=== PATIENT | male | born 1965 | race Caucasian/White ===

== ENCOUNTER 2021-11-14 23:51 | Observation (INO) | payer MEDICARE, SELFPAY ==
--- NOTE | 2021-11-14 23:54 | XRR_ITS ---
PROCEDURE INFORMATION: Exam: XR Chest Exam date and time: 11/15/2021 12:03 AM Age: 56 years old Clinical indication: Other: Od TECHNIQUE: Imaging protocol: Radiologic exam of the chest. Views: 1 view. COMPARISON: No relevant prior studies available. FINDINGS: Tubes, catheters and devices: Monitor leads project over the chest. Lungs: Low lung volumes with mild left basilar atelectasis versus pneumonia. Pleural spaces: Minimal left costophrenic angle blunting. No evidence of pneumothorax. Heart/Mediastinum: Heart size within normal limits given the portable AP technique. Calcified mediastinal lymph nodes. Bones/joints: Thoracic spondylosis and degenerative bony changes. XR/XR chest 1V portable [id number] IMPRESSION: 1. Low lung volumes with mild left basilar atelectasis versus pneumonia. 2. Possible small left pleural effusion.
--- NOTE | 2021-11-14 23:54 | CTR_ITS ---
PROCEDURE INFORMATION: Exam: CT Head Without Contrast Exam date and time: 11/15/2021 12:12 AM Age: 56 years old Clinical indication: Other: Od TECHNIQUE: Imaging protocol: Computed tomography of the head without contrast. Radiation optimization: All CT scans at this facility use at least one of these dose optimization techniques: automated exposure control; mA and/or kV adjustment per patient size (includes targeted exams where dose is matched to clinical indication); or iterative reconstruction. COMPARISON: No relevant prior studies available. RADIATION DOSE METRICS: Total DLP (mGy-cm): 1157.98 FINDINGS: Brain: No acute abnormality. No edema or mass effect. No hemorrhage. Cerebral ventricles: No acute abnormality. No significant ventriculomegaly. Paranasal sinuses: Mild sinus mucosal thickening without sinus fluid or air fluid level. Mastoid air cells: No acute abnormality. No significant mastoid effusion. Bones/joints: No acute osseous abnormality. No acute fracture. Soft tissues: No significant soft tissue abnormalities. CT/CT head wo con* [id number] IMPRESSION: No evidence of acute intracranial abnormality.
[2021-11-14 23:58] VITALS: BP 124/89; PULSE 80; RESP 18; O2SAT 91; BMI 27.8
[2021-11-15] VITALS (45 sets, daily range): BP systolic 112–149; BP diastolic 70–98; PULSE 55–85; RESP 8–24; TEMP 36.9; O2SAT 85–100
--- NOTE | 2021-11-15 00:05 | ECG_ITS ---
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 Measurements Intervals [place] Rate: 67 P: 45 MD: 188 QRS: 16 QRSD: 93 T: 8 QT: 423 QTc: 448 Interpretive Statements SINUS RHYTHM WITH MARKED SINUS ARRHYTHMIA SEPTAL MYOCARDIAL INFARCTION , OF INDETERMINATE AGE [40+ ms Q WAVE IN V1/V2] Compared to ECG 11/15/2021 02:13:20 Incomplete right bundle-branch block no longer present Myocardial infarct finding still present Electronically Signed On 11-15-2021 23:39:51 CDT by Abraham Singh M.D. [id number]
[2021-11-15 00:15] LABS: Basophils % 0.2 %; Eosinophils # 0.1 10^3/uL (0.0-0.8); Eosinophils % 0.8 %; Hematocrit 42.8 % (42.0-52.0); Hemoglobin 14.4 g/dL (11.7-16.6); Lymphocytes # 0.7 10^3/uL (0.8-4.8); Mean Corpuscular HGB Conc 33.6 g/dL (30.0-36.0); Mean Corpuscular Hemoglobin 28.9 pg (28.0-34.0); Mean Corpuscular Volume 85.8 fl (80-94); Mean Platelet Volume 9.7 fL (7.4-10.4); Monocytes # 0.8 10^3/uL (0.2-0.9); Monocytes % 6.2 %; Neutrophils # 11.47 10^3/uL (1.8-7.7); Neutrophils % 87.3 %; Nucleated Red Blood Cells % 0 %; Platelet Count 234 10^3/cmm (130-400); Red Blood Count 4.99 10^6/uL (4.1-5.3); Red Cell Distribution Width 12.5 % (12.1-15.1); White Blood Count 13.1 10^3/uL (4.0-10.0)
--- NOTE | 2021-11-15 00:16 | ED_ITS ---
HPI - Overdose General: Chief Complaint: Overdose Stated Complaint: OD Time Seen by Provider: 11/14/21 23:54 Source: EMS Mode of arrival: EMS Limitations: altered mental status History of Present Illness: 56-year-old male who is here with EMS for a possible drug overdose. He states were called to the residence him and his girlfriend were both unresponsive then given both Narcan at the scene the girlf eugene woke up she had admitted that they had been using drugs she states that she thinks that he snorted cocaine possibly meth and heroin. Patient did awake with Narcan but last dose was given an hour ago and he is currently quite somnolent will only wake to painful stimuli and tell me his name but then falls right back to sleep he is requiring oxygen as well. No known injuries Review of Systems General: Reports: ROS unobtainable due to mental status PFS ED PFSH: Medical History Conjunctivitis Eye infection Social History Smoking and tobacco status: former smoker Physical Exam Const: COMMON NORMALS: negative for patient oriented x3 and negative for alert OTHER: Patient is very somnolent he will wake to painful stimuli he is able to tell me his name and the date but then falls right back to sleep HENMT: COMMON NORMALS: normocephalic and atraumatic HEAD & SCALP: normocephalic and atraumatic Eye: COMMON NORMALS: Equal, round and reactive pupils present and EOMs intact bilaterally PUPIL: Yes Equal, round and reactive pupils present Neck/C-Spine: COMMON NORMALS: full ROM and supple Chest: COMMONS NORMALS: normal inspection of the chest and normal palpation of entire chest wall Resp: COMMON NORMALS: normal respiratory effort, No retractions, No use of accessory muscles and clear to auscultation bilaterally AUSCULTATION: clear to auscultation bilaterally Cardio: COMMON NORMALS: regular rate, regular rhythm and No murmurs present (Cardio) RATE: regular rate RHYTHM: regular rhythm GI: COMMON NORMALS: Normal to inspection, nondistended, normoactive bowel sounds present, Soft to palpation, non-tender and no masses PALPATION: Yes Soft to palpation Extremity: COMMON NORMALS: normal to inspection and full ROM Neuro: COMMON NORMALS: moves all extremities and no focal motor deficits; negative for patient oriented x3 SENSORIUM/ORIENTATION: No alert and Yes somnolent Psych: COMMON NORMALS: cooperative; negative for mental status grossly normal and negative for Normal thought process present THOUGHT PROCESS: abnormal Skin: COMMON NORMALS: no rashes or lesions noted and no wounds GENERAL SKIN EXAM: no rashes or lesions noted Course Vital Signs: Vital signs: Vital Signs Pulse Rate 71 11/15/21 03:01 Respiratory Rate 16 11/15/21 03:01 Blood Pressure 128/94 11/15/21 03:01 Pulse Oximetry 97 11/15/21 03:01 MDM - Overdose Medical Decision Making Patient presents here with a drug overdose she does have a pneumonia possibly from aspiration patient is more alert and awake now but is currently requiring [address] chest here showed pneumonia no signs of pulm embolism we will treat with antibiotics spoke to hospitalist will admit at this time. Lab Data : 11/15/21 00:05 11/15/21 00:05 Radiology Impressions Chest X-Ray 11/14/21 23:54 IMPRESSION: 1. Low lung volumes with mild left basilar atelectasis versus pneumonia. 2. Possible small left pleural effusion. Head CT 11/14/21 23:54 IMPRESSION: No evidence of acute intracranial abnormality. Chest CTA 11/15/21 02:47 IMPRESSION: 1. No evidence of pulmonary embolism. 2. Posterior bilateral lower lobe atelectasis versus pneumonia or aspiration with bibasilar consolidation and volume loss. 3. Small hiatal hernia with gastroesophageal reflux to the level of the thoracic inlet. Laboratory Results WBC 13.1 10^3/uL (4.0-10.0) H 11/15/21 00:05 RBC 4.99 10^6/uL (4.1-5.3) 11/15/21 00:05 Hgb 14.4 g/dL (11.7-16.6) 11/15/21 00:05 Hct 42.8 % (42.0-52.0) 11/15/21 00:05 MCV 85.8 fl (80-94) 11/15/21 00:05 MCH 28.9 pg (28.0-34.0) 11/15/21 00:05 MCHC 33.6 g/dL (30.0-36.0) 11/15/21 00:05 RDW 12.5 % (12.1-15.1) 11/15/21 00:05 Plt Count 234 10^3/cmm (130-400) 11/15/21 00:05 MPV 9.7 fL (7.4-10.4) 11/15/21 00:05 Neut % (Auto) 87.3 % 11/15/21 00:05 Lymph % (Auto) 5.0 % 11/15/21 00:05 [place] % (Auto) 6.2 % 11/15/21 00:05 Eos % (Auto) 0.8 % 11/15/21 00:05 Baso % (Auto) 0.2 % 11/15/21 00:05 Neut # (Auto) 11.47 10^3/uL (1.8-7.7) H 11/15/21 00:05 Lymph # (Auto) 0.7 10^3/uL (0.8-4.8) L 11/15/21 00:05 [place] # (Auto) 0.8 10^3/uL (0.2-0.9) 11/15/21 00:05 Eos # (Auto) 0.1 10^3/uL (0.0-0.8) 11/15/21 00:05 Baso # (Auto) 0.0 10^3/uL (0.0-0.1) 11/15/21 00:05 Nucleated RBC % (auto) 0 % 11/15/21 00:05 Nucleated RBCs # 0.0 /100WBC 11/15/21 00:05 Specimen Type Arterial 11/14/21 00:17 Sample Site Radial, left 11/14/21 00:17 ABG pH 7.30 (7.35-7.45) L 11/14/21 00:17 ABG pCO2 54.1 mmHg (35-45) H 11/14/21 00:17 ABG pO2 103.0 mmHg (80.0-100.0) H 11/14/21 00:17 ABG HCO3 26.7 mmol/L (22-26) H 11/14/21 00:17 ABG Base Excess -0.8 mmol/L (-2.0-2.0) 11/14/21 00:17 Ezra Test Pos 11/14/21 00:17 Hematocrit 46.8 % (42-52) 11/14/21 00:17 O2 Delivery Device Nc 11/14/21 00:17 O2 Liters/Min 3.0 % 11/14/21 00:17 Supervisor [employer] ID [place] 11/14/21 00:17 Sodium 140 mmol/L (136-145) 11/15/21 00:05 Potassium 4.5 mmol/L (3.5-5.1) 11/15/21 00:05 Chloride 106 mmol/L (98-107) 11/15/21 00:05 Carbon Dioxide 26 mmol/L (22-29) 11/15/21 00:05 Anion Gap 12.5 (5-19) 11/15/21 00:05 BUN 18 mg/dL (6-20) 11/15/21 00:05 Creatinine 1.2 mg/dL (0.7-1.2) 11/15/21 00:05 GFR Calculation 62.9 mL/min (90-130) L 11/15/21 00:05 Glucose 142 mg/dL (65-115) H 11/15/21 00:05 Calculated Osmolality 294 mOsm/kg (285-295) 11/15/21 00:05 Calcium 8.6 mg/dL (8.5-10.5) 11/15/21 00:05 Total Bilirubin 0.3 mg/dL (0.15-1.2) 11/15/21 00:05 AST 19 U/L (0-40) 11/15/21 00:05 ALT 19 U/L (0-41) 11/15/21 00:05 Alkaline Phosphatase 81 IU/L (40-130) 11/15/21 00:05 Troponin T Baseline 39 ng/L (0-15) H 11/15/21 00:05 Troponin T 120 Minute 61.88 ng/L (0-15) H 11/15/21 02:08 Delta Troponin T 22.88 ABS# (0-10) H* 11/15/21 02:08 Total Protein 7.0 g/dL (6.6-8.7) 11/15/21 00:05 Albumin 4.4 g/dL (3.5-5.2) 11/15/21 00:05 Globulin 2.6 g/dL (1.3-4.6) 11/15/21 00:05 Salicylates < 0.3 mg/dL (3-10) L 11/15/21 00:05 Urine Opiates Screen Negative ng/mL (Negative) 11/15/21 00:35 Acetaminophen < 5.0 ug/mL (10-30) L 11/15/21 00:05 Ur Barbiturates Screen Negative ng/mL (Negative) 11/15/21 00:35 Ur Phencyclidine Scrn Negative ng/mL (Negative) 11/15/21 00:35 Ur Amphetamines Screen Positive ng/mL (Negative) H 11/15/21 00:35 U Benzodiazepines Scrn Negative ng/mL (Negative) 11/15/21 00:35 Urine Cocaine Screen Positive ng/mL (Negative) H 11/15/21 00:35 U Marijuana (THC) Screen Negative ng/mL (Negative) 11/15/21 00:35 Ethyl Alcohol < 10 mg/dL (0-10) 11/15/21 00:05 EKG Data EKG 1: I personally reviewed and interpreted this EKG as follows: EKG interpretation date: 11/15/21 EKG interpretation time: 00:01 Interpretation: nsr hr [address] or t wave abnormalities qrs 98 qtc 443 EKG 2: I personally reviewed and interpreted this EKG as follows: EKG interpretation date: 11/15/21 EKG interpretation time: 02:13 Interpretation: nsr hr [address] or t wave abnormalities qrs 94 qtc 438 Critical Care Time Critical Care Time: Critical Care Time: Yes Total Critical Care Time: 40 Attestation: The high probability of a clinically significant, sudden or life threatening deterioration of the patient's resp system(s) required my full and direct attention, intervention and personal management. The critical care time is as shown. This time is in addition to time spent performing any reported procedures but includes the following: [x] Data and vital sign review and interpretation [x] Patient assessment, examination and intervention [x] Documentation [x] Medication orders and management Discharge Plan Discharge Patient Disposition: Admitted As Inpatient Admit Provider: Love Hood Clinical Impression: Drug overdose, Pneumonia, Altered mental status Condition: Stable Coding Level of Care Code ED Quality Eng for Chg Fwd Exam Comprehensive
[2021-11-15 00:29] LABS: ABG PCO2 54.1 mmHg (35-45); Arterial Blood Gas Hematocrit 46.8 % (42-52); Base Excess ABG -0.8 mmol/L (-2.0-2.0); Blood Gas Allen Test Pos; Blood Gas Operator Identificat WALCI; Blood Gas Sample Site Radial, left; Blood Gas Sample Type Arterial; HCO3 ABG 26.7 mmol/L (22-26); Oxygen Device NC
[2021-11-15 00:33] LABS: Troponin(5th) Baseline 39 ng/L (0-15)
[2021-11-15 00:34] LABS: Alanine Aminotransferase 19 U/L (0-41); Albumin Level 4.4 g/dL (3.5-5.2); Alkaline Phosphatase 81 IU/L (40-130); Anion Gap 12.5 (5-19); Aspartate Amino Transferase 19 U/L (0-40); Blood Urea Nitrogen 18 mg/dL (6-20); Calcium 8.6 mg/dL (8.5-10.5); Carbon Dioxide 26 mmol/L (22-29); Chloride 106 mmol/L (98-107); Globulin 2.6 g/dL (1.3-4.6); Glomerular Filtration Rate 62.9 mL/min (90-130); Glucose 142 mg/dL (65-115); Osmolality Calculated 294 mOsm/kg (285-295); Potassium 4.5 mmol/L (3.5-5.1); Sodium 140 mmol/L (136-145); Total Bilirubin 0.3 mg/dL (0.15-1.2)
[2021-11-15 00:35] LABS: Acetaminophen < 5.0 ug/mL (10-30); Alcohol Level < 10 mg/dL (0-10); Salicylate < 0.3 mg/dL (3-10)
[2021-11-15] MEDS: sodium chloride 0.9% 1,000 ML 999 ML IV (00:40)
[2021-11-15 01:13] LABS: Amphetamines Screen Urine Positive (Negative); Barbiturates Screen Urine Negative (Negative); Benzodiazepines Screen Urine Negative (Negative); Cocaine Screen Urine Positive (Negative); Opiate Screen Urine Negative (Negative); PCP Screen Urine Negative (Negative); THC Screen Urine Negative (Negative)
--- NOTE | 2021-11-15 02:05 | ECG_ITS ---
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 Measurements Intervals [place] Rate: 65 P: 37 ND: 207 QRS: 7 QRSD: 94 T: 15 QT: 426 QTc: 445 Interpretive Statements SINUS RHYTHM WITH MARKED SINUS ARRHYTHMIA POSSIBLE LEFT ATRIAL ENLARGEMENT [-0.1mV P-WAVE IN V1/V2] INCOMPLETE RIGHT BUNDLE BRANCH BLOCK [90+ ms QRS DURATION, TERMINAL R IN V1/V2, 40+ ms S IN I/aVL/V4/V5/V6] POSSIBLE LEFT VENTRICULAR HYPERTROPHY [VOLTAGE CRITERIA PLUS LAE OR QRS WIDENING] POSSIBLE ANTEROSEPTAL MYOCARDIAL INFARCTION , OF INDETERMINATE AGE [30 ms Q WAVE IN V1-V4] Compared to ECG 11/15/2021 00:01:46 No significant changes Electronically Signed On 11-15-2021 23:46:00 CDT by Abraham Singh M.D. [id number]
--- NOTE | 2021-11-15 02:19 | PC.NURSE ---
EKG done at 0210 and shown to ER doctor
[2021-11-15 02:41] LABS: Troponin 5 2HR 61.88 ng/L (0-15)
[2021-11-15 02:44] LABS: Troponin 5 2HR Delta 22.88 ABS# (0-10)
--- NOTE | 2021-11-15 02:47 | CTR_ITS ---
PROCEDURE INFORMATION: Exam: CTA Chest With Contrast Exam date and time: 11/15/2021 3:12 AM Age: 56 years old Clinical indication: Shortness of breath and other: Od; Additional info: SOB TECHNIQUE: Imaging protocol: Computed tomographic angiography of the chest with contrast. 3D rendering (Not supervised by radiologist): MIP and/or 3D reconstructed images were created by the technologist. Radiation optimization: All CT scans at this facility use at least one of these dose optimization techniques: automated exposure control; mA and/or kV adjustment per patient size (includes targeted exams where dose is matched to clinical indication); or iterative reconstruction. Contrast material: OMNI 350; Contrast volume: 68 ml; Contrast route: INTRAVENOUS (IV); COMPARISON: CR (CHEST, ) 11/15/2021 12:03 AM RADIATION DOSE METRICS: Total DLP (mGy-cm): 516.38 FINDINGS: Pulmonary arteries: No vascular intraluminal filling defects to suggest pulmonary embolism. Aorta: Mild atherosclerotic tortuosity of the thoracic aorta. No aortic aneurysm or dissection. Lungs: Posterior bilateral lower lobe atelectasis versus pneumonia or aspiration with bibasilar consolidation and volume loss. Minimal posterior bilateral upper lobe dependent changes. Small bilateral calcified granulomas. Pleural spaces: Unremarkable. No pneumothorax. No pleural effusion. Heart: Heart size upper limits of normal. Mediastinal space: Small hiatal hernia. Fluid within the esophagus to the level of the thoracic inlet suggesting gastroesophageal reflux. Lymph nodes: Calcified mediastinal and hilar lymph nodes. Spleen: Punctate splenic calcified granulomas. Bones/joints: Mild thoracic kyphosis, spondylosis and degenerative bony changes. Soft tissues: No significant soft tissue abnormalities. CT/CT angio chest PE protcl [id number] IMPRESSION: 1. No evidence of pulmonary embolism. 2. Posterior bilateral lower lobe atelectasis versus pneumonia or aspiration with bibasilar consolidation and volume loss. 3. Small hiatal hernia with gastroesophageal reflux to the level of the thoracic inlet.
[2021-11-15] MEDS: iohexol 350 mg/mL 100 mL Btl IV (03:21)
[2021-11-15] MEDS: cefTRIAXone 1,000 MG in sodium chloride 0.9% (plus) 50 ML 100 MG IV (03:39)
[2021-11-15] MEDS: azithromycin 500 MG in sodium chloride 0.9% 250 ML 250 MG IV (04:05)
[2021-11-15] MEDS: enoxaparin 100 mg/mL Syringe 90 MG SUBCUT ×2 (04:19→16:42)
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
--- NOTE | 2021-11-15 06:02 | USCV_ITS ---
Yanick Bhatti Age: 56 Gender: M : 1965 Exam Date: 11/15/2021 08:17 Ordering Phys: Love Hood MD Technologist: [place] [facility] [place]: chest pain BP: 141 / 103 HR: 59 Rhythm: Sinus Technical Quality: Adequate MEASUREMENTS (Male / Female) Normal Values 2D ECHO LV Diastolic Diameter PLAX 4.0 cm 4.2 - 5.9 / 3.9 - 5.3 cm LV Systolic Diameter PLAX 2.1 cm IVS Diastolic Thickness 1.0 cm 0.6 - 1.0 / 0.6 - 0.9 cm IVS Systolic Thickness 1.6 cm LVPW Diastolic Thickness 1.3 cm 0.6 - 1.0 / 0.6 - 0.9 cm LVPW Systolic Thickness 1.4 cm LVOT Diameter 2.0 cm LV Ejection Fraction 2D Teich 77.6 % LV Ejection Fraction MOD 2C 43.4 % LV Ejection Fraction 2C AL 41.9 % LA Diameter 4.7 cm M-MODE Aortic Annulus Diameter 2.5 cm LA Ao Ratio MM 1.9 MV E Point Septal Separation 0.6 cm DOPPLER AV Peak Velocity 129.0 cm/s LVOT Peak Velocity 104.0 cm/s AV Area Cont Eq vti 3.1 cm squared AV Area Cont Eq pk 2.6 cm squared MV Area PHT 5.0 cm squared Mitral E to A Ratio 1.0 MV E' Velocity 47.0 cm/s Mitral E to MV E' Ratio 12.9 Mitral E to LV E' Lateral Ratio 13.0 Mitral E to LV E' Septal Ratio 12.7 TR Peak Velocity 165.5 cm/s TR Peak Gradient 11.0 mmHg TV Peak E Velocity 69.0 cm/s Right Atrial Pressure 3.0 mmHg Pulmonary Artery Systolic Pressu 14.0 mmHg PV Peak Velocity 89.0 cm/s FINDINGS Left Ventricle Normal left ventricular size and systolic function, EF 55 %. Mild left ventricular hypertrophy. No regional wall motion abnormalities. Right Ventricle The right ventricle is normal in size and function. Right Atrium The right atrium is normal in size. Left Atrium The left atrium is normal in size. Mitral Valve No gross abnormalities noted Aortic Valve No gross abnormalities noted Tricuspid Valve Trace tricuspid valve regurgitation. Pulmonic Valve No gross abnormalities noted Pericardium Normal pericardium without effusion. Aorta Normal ascending aorta dimension. IVC The inferior vena cava pulmonary and hepatic veins appear normal. CONCLUSIONS Normal left ventricular size and systolic function, EF 55 %. Mild left ventricular hypertrophy. No regional wall motion abnormalities. Trace tricuspid valve regurgitation. Estimated pulmonary artery peak systolic pressure 14 mmHg. There is no pericardial effusion. There are no intracardiac masses. No previous study is available for comparison. Dr Abraham Singh MD FACC (Electronically Signed) Final Date: 15 November 2021 22:57 S
--- NOTE | 2021-11-15 06:05 | ECG_ITS ---
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 Measurements Intervals [place] Rate: 71 P: 45 AL: 193 QRS: 11 QRSD: 98 T: 17 QT: 421 QTc: 457 Interpretive Statements SINUS RHYTHM WITH SINUS ARRHYTHMIA POSSIBLE LEFT ATRIAL ENLARGEMENT [-0.1mV P-WAVE IN V1/V2] INCOMPLETE RIGHT BUNDLE BRANCH BLOCK [90+ ms QRS DURATION, TERMINAL R IN V1/V2, 40+ ms S IN I/aVL/V4/V5/V6] POSSIBLE LEFT VENTRICULAR HYPERTROPHY [VOLTAGE CRITERIA PLUS LAE OR QRS WIDENING] POSSIBLE ANTEROSEPTAL MYOCARDIAL INFARCTION , OF INDETERMINATE AGE [30 ms Q WAVE IN V1-V4] No previous ECG available for comparison Electronically Signed On 11-15-2021 23:44:17 CDT by Abraham Singh M.D. [id number]
--- NOTE | 2021-11-15 06:05 | P.HP_ITS ---
Providers/Chief Complaint Admitting Physician: Love Hood MD Chief Complaint: OD History of Present Illness Yanick Bhatti is a 56 year old male without known significant PMH who is brought to the ER today with AMS. No clear history available at this time for patient due to AMS and lethargy. Per ER and EMS report, patient was found unresponsive in his home today with h/o having taking multiple illicit substances including heroin, cocaine and meth. He received Narcan after which his mentation improved, however he remains katia rgic. Also noted to have been hypoxic, needing supplemental 02 at 2lpm. Review of Systems General: Reports: ROS unobtainable due to medical condition and ROS unobtainable due to mental status Medications/Allergies Home Medications Medication Instructions Recorded Confirmed Last Taken Type qwojkwgz-vrdwyuhph-cbqstoox 3.5 2 drp OPHTHALMIC (EYE) Q6H #5 ml 08/02/21 08/02/21 Unknown Rx mg/mL-10,000 unit/mL-0.1% eye drops Allergies Allergy/AdvReac Type Severity Reaction Status Date / Time No Known Allergies Allergy Unverified 08/02/21 13:19 PFSH Acute PFSH: Medical History Conjunctivitis Eye infection Social History Smoking and tobacco status: former smoker Vitals/I&O/Wt Last Vital Signs Pulse 64 11/15/21 05:55 Resp 9 L 11/15/21 05:55 BP 118/80 11/15/21 05:55 Pulse Ox 100 11/15/21 05:55 11/14/21 11/14/21 11/15/21 14:59 22:59 06:59 Intake Total 1300 / 1300 Balance 1300 / 1300 Weight last 48 hrs Weight 90.718 kg Physical Exam Narrative: GEN: Lethargic, drowsy, wakes up to calling name and nods yes or no but does not follow directed commands CVS: S1S2 N RS: CTA B/L anteriorly Abd: Soft, nt/nd , bs+ 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 Low lung volumes with mild left basilar atelectasis versus pneumonia. 2. Possible small left pleural effusion. Head CT 11/14/21 23:54 IMPRESSION: No evidence of acute intracranial abnormality. Chest CTA 11/15/21 02:47 IMPRESSION: 1. No evidence of pulmonary embolism. 2. Posterior bilateral lower lobe atelectasis versus pneumonia or aspiration with bibasilar consolidation and volume loss. 3. Small hiatal hernia with gastroesophageal reflux to the level of the thoracic inlet. Laboratory Results WBC 13.1 10^3/uL (4.0-10.0) H 11/15/21 00:05 RBC 4.99 10^6/uL (4.1-5.3) 11/15/21 00:05 Hgb 14.4 g/dL (11.7-16.6) 11/15/21 00:05 Hct 42.8 % (42.0-52.0) 11/15/21 00:05 MCV 85.8 fl (80-94) 11/15/21 00:05 MCH 28.9 pg (28.0-34.0) 11/15/21 00:05 MCHC 33.6 g/dL (30.0-36.0) 11/15/21 00:05 RDW 12.5 % (12.1-15.1) 11/15/21 00:05 Plt Count 234 10^3/cmm (130-400) 11/15/21 00:05 MPV 9.7 fL (7.4-10.4) 11/15/21 00:05 Neut % (Auto) 87.3 % 11/15/21 00:05 Lymph % (Auto) 5.0 % 11/15/21 00:05 Randolph % (Auto) 6.2 % 11/15/21 00:05 Eos % (Auto) 0.8 % 11/15/21 00:05 Baso % (Auto) 0.2 % 11/15/21 00:05 Neut # (Auto) 11.47 10^3/uL (1.8-7.7) H 11/15/21 00:05 Lymph # (Auto) 0.7 10^3/uL (0.8-4.8) L 11/15/21 00:05 Randolph # (Auto) 0.8 10^3/uL (0.2-0.9) 11/15/21 00:05 Eos # (Auto) 0.1 10^3/uL (0.0-0.8) 11/15/21 00:05 Baso # (Auto) 0.0 10^3/uL (0.0-0.1) 11/15/21 00:05 Nucleated RBC % (auto) 0 % 11/15/21 00:05 Nucleated RBCs # 0.0 /100WBC 11/15/21 00:05 Specimen Type Arterial 11/14/21 00:17 Sample Site Radial, left 11/14/21 00:17 ABG pH 7.30 (7.35-7.45) L 11/14/21 00:17 ABG pCO2 54.1 mmHg (35-45) H 11/14/21 00:17 ABG pO2 103.0 mmHg (80.0-100.0) H 11/14/21 00:17 ABG HCO3 26.7 mmol/L (22-26) H 11/14/21 00:17 ABG Base Excess -0.8 mmol/L (-2.0-2.0) 11/14/21 00:17 Ezra Test Pos 11/14/21 00:17 Hematocrit 46.8 % (42-52) 11/14/21 00:17 O2 Delivery Device Nc 11/14/21 00:17 O2 Liters/Min 3.0 % 11/14/21 00:17 Electronic Technician ID Walci 11/14/21 00:17 Sodium 140 mmol/L (136-145) 11/15/21 00:05 Potassium 4.5 mmol/L (3.5-5.1) 11/15/21 00:05 Chloride 106 mmol/L (98-107) 11/15/21 00:05 Carbon Dioxide 26 mmol/L (22-29) 11/15/21 00:05 Anion Gap 12.5 (5-19) 11/15/21 00:05 BUN 18 mg/dL (6-20) 11/15/21 00:05 Creatinine 1.2 mg/dL (0.7-1.2) 11/15/21 00:05 GFR Calculation 62.9 mL/min (90-130) L 11/15/21 00:05 Glucose 142 mg/dL (65-115) H 11/15/21 00:05 Calculated Osmolality 294 mOsm/kg (285-295) 11/15/21 00:05 Calcium 8.6 mg/dL (8.5-10.5) 11/15/21 00:05 Total Bilirubin 0.3 mg/dL (0.15-1.2) 11/15/21 00:05 AST 19 U/L (0-40) 11/15/21 00:05 ALT 19 U/L (0-41) 11/15/21 00:05 Alkaline Phosphatase 81 IU/L (40-130) 11/15/21 00:05 Troponin T Baseline 39 ng/L (0-15) H 11/15/21 00:05 Troponin T 120 Minute 61.88 ng/L (0-15) H 11/15/21 02:08 Delta Troponin T 22.88 ABS# (0-10) H* 11/15/21 02:08 Total Protein 7.0 g/dL (6.6-8.7) 11/15/21 00:05 Albumin 4.4 g/dL (3.5-5.2) 11/15/21 00:05 Globulin 2.6 g/dL (1.3-4.6) 11/15/21 00:05 Salicylates < 0.3 mg/dL (3-10) L 11/15/21 00:05 Urine Opiates Screen Negative ng/mL (Negative) 11/15/21 00:35 Acetaminophen < 5.0 ug/mL (10-30) L 11/15/21 00:05 Ur Barbiturates Screen Negative ng/mL (Negative) 11/15/21 00:35 Ur Phencyclidine Scrn Negative ng/mL (Negative) 11/15/21 00:35 Ur Amphetamines Screen Positive ng/mL (Negative) H 11/15/21 00:35 U Benzodiazepines Scrn Negative ng/mL (Negative) 11/15/21 00:35 Urine Cocaine Screen Positive ng/mL (Negative) H 11/15/21 00:35 U Marijuana (THC) Screen Negative ng/mL (Negative) 11/15/21 00:35 Ethyl Alcohol < 10 mg/dL (0-10) 11/15/21 00:05 A&P Assessment and plan (1) Drug overdose: Status: Acute (2) Pneumonia: Status: Acute (3) Altered mental status: Status: Acute (4) NSTEMI (non-ST elevated myocardial infarction): Status: Acute Plan 56M presenting today with AMS likely as a result of polysubstance abuse and acute intoxication . # AMS CT head without acute intracranial events AMS likely reated to polysubstance abuse Per EMS report patient had improved mentation after being narcan, however remains lethargic at this time Admitted to ICU for close observation monitor for seizures NPO until fully awake and alert # acute intoxication Supportive management with iv hydration prn benzodiazepenes with 02 sat permitting Cardiac monitoring # aspiration pneumonia : On empric piperacillin/tazobactam # Hypoxia: likely a combination of aspiration and poor inspiratory effort from AMS supplemental 02 to keep sat >92% ABG noted #NSTEMI: elevated baseline troponin with delta >10 at 2 hrs Likely related to vasospasm from cocaine vs ischemia EKG with sinus arrhythmia, no acute ST-T wave changes on EKG Lovenox 1mg/kg q12h prn nitrates for chest pain avoid b blockers check echocardiogram Attestations Medical Necessity Statement*: >2 midnight admission anticipated for above care Coding Level of Care Code Acute Staffing Administrator for [facility] Fwd Diagnoses Drug overdose T50.901A Pneumonia J18.9 Altered mental status R41.82 NSTEMI (non-ST elevated myocardial infarction) I21.4
[2021-11-15] MEDS: famotidine 20 mg/2 mL INJ IVP ×2 (06:40→19:01)
[2021-11-15] MEDS: sodium chloride 0.9% 1,000 ML 75 ML IV ×2 (06:40→19:03)
--- NOTE | 2021-11-15 06:53 | PC.NURSE ---
Shift Summary Patient had an uneventful shift he remains on 2LNC. No complaints of pain overnight. IVF infusing per protocol.
[2021-11-15 07:22] LABS: Lactic Sepsis W/Reflex 0.7 mmol/L (0.5-2.2)
[2021-11-15 07:37] LABS: Troponin 5 6HR 40.58 ng/L (0-15)
[2021-11-15 07:40] LABS: Troponin 5 6HR Delta 1.58 ng/L (0-12)
[2021-11-15] MEDS: aspirin 81 mg EC Tablet PO (08:42)
[2021-11-15] MEDS: atorvastatin 40 mg Tablet PO (21:38)
--- NOTE | 2021-11-15 22:03 | P.PN_ITS ---
Subjective Subjective: Awake this evening. Not much recollection of events. Not able to recall what he might have taken. Still on oxygen at 2 L. Not normally on oxygen. Cough. Denies history of CAD. No clear family history of CAD. Says has been told that he had an abnormal heart rhythm in the past. No medications for this. Vitals/I&O/Wt Last Vital Signs Temp 98.4 F 11/15/21 20:00 Pulse 60 11/15/21 19:36 Resp 12 11/15/21 19:00 BP 134/88 11/15/21 19:00 Pulse Ox 98 11/15/21 19:36 11/15/21 11/15/21 11/15/21 06:59 14:59 22:59 Intake Total 1300 / 1300 1668.75 / 1668.75 Output Total 200 / 200 Balance 1300 / 1300 1468.75 / 1468.75 Weight last 48 hrs Weight 90.718 kg Physical Exam Narrative: Constitutional: Awake, cooperative HEENT: Injected conjuctiva and sclera, dry lips Respiratory: Scattered crackles, occassional wheeze resolves with cough/throat clearing, no accessory muscle use Cardiovascular: Regular rhythm, 2 plus pulses Abdomen: Soft, nontender Extremities: No edema Neuro: Speech clear but not able to answer some questions, slightly restless in bed at present, not tremulous, follows converstaion and basic instructions Skin: Red in sun exposed areas, tattoos, hand dirty Data : 11/15/21 00:05 11/15/21 00:05 Micro: Microbiology 11/15/21 06:17 Blood Culture - Preliminary Blood SPECIMEN COLLECTED 11/15/21 03:59 Blood Culture - Preliminary Blood SPECIMEN COLLECTED Other data: Echo pending read A&P Assessment and plan (1) Drug overdose: Polysubstance with amphetamines, cocaine Status: Acute Qualifiers: Encounter type: initial encounter Injury intent: accidental or unintentional Qualified Code(s): T50.901A - Poisoning by unspecified drugs, medicaments and biological substances, accidental (unintentional), initial encounter (2) NSTEMI (non-ST elevated myocardial infarction): + delta troponin at 2 hours with ekg changes, no current chest pain Status: Acute (3) Pneumonia: Requiring oxygen Status: Acute Qualifiers: Pneumonia type: aspiration pneumonia Aspiration pneumonia type: due to gastric secretions Laterality: bilateral Lung location: lower lobe of lung Qualified Code(s): J69.0 - Pneumonitis due to inhalation of food and vomit Plan Transfer to floor Follow up echo report Continue aspirin, statin and treatment dose lovenox Continue Zosyn, s/p rocephin and azithromycin Cultures pending Wean oxygen as able Add diet and decrease IVFs Recheck blood sugar in am Check CK Attestations Medical Necessity Statement*: See H&P same date Coding Level of Care Code Acute Assurance Sourcing Manager for g Fwd Diagnoses Drug overdose T50.706X Encounter type: initial encounter Injury intent: accidental or unintentional NSTEMI (non-ST elevated myocardial infarction) I21.4 Pneumonia J69.0 Pneumonia type: aspiration pneumonia Aspiration pneumonia type: due to gastric secretions Laterality: bilateral Lung location: lower lobe of lung
[2021-11-15] MEDS: piperacillin-tazobactam 3.375 GM in sodium chloride 0.9% (plus) 50 ML IV (22:05)
[2021-11-16] VITALS (12 sets, daily range): BP systolic 134–147; BP diastolic 77–94; PULSE 58–71; RESP 10–18; TEMP 36.2–36.8; O2SAT 91–100
[2021-11-16] MEDS: enoxaparin 100 mg/mL Syringe 90 MG SUBCUT (05:22)
[2021-11-16] MEDS: famotidine 20 mg/2 mL INJ IVP (05:22)
[2021-11-16] MEDS: piperacillin-tazobactam 3.375 GM in sodium chloride 0.9% (plus) 50 ML IV (05:23)
[2021-11-16 06:20] LABS: Basophils % 0.4 %; Eosinophils # 0.5 10^3/uL (0.0-0.8); Eosinophils % 6.2 %; Hematocrit 40.6 % (42.0-52.0); Hemoglobin 13.2 g/dL (11.7-16.6); Lymphocytes # 1.8 10^3/uL (0.8-4.8); Mean Corpuscular HGB Conc 32.5 g/dL (30.0-36.0); Mean Corpuscular Volume 89.2 fl (80-94); Mean Platelet Volume 10.3 fL (7.4-10.4); Monocytes # 0.7 10^3/uL (0.2-0.9); Monocytes % 8.6 %; Neutrophils # 4.67 10^3/uL (1.8-7.7); Neutrophils % 61.4 %; Nucleated Red Blood Cells % 0 %; Platelet Count 231 10^3/cmm (130-400); Red Blood Count 4.55 10^6/uL (4.1-5.3); Red Cell Distribution Width 12.8 % (12.1-15.1); White Blood Count 7.6 10^3/uL (4.0-10.0)
[2021-11-16 06:49] LABS: Alanine Aminotransferase 14 U/L (0-41); Albumin Level 3.5 g/dL (3.5-5.2); Alkaline Phosphatase 73 IU/L (40-130); Aspartate Amino Transferase 18 U/L (0-40); Blood Urea Nitrogen 19 mg/dL (6-20); Calcium 8.5 mg/dL (8.5-10.5); Carbon Dioxide 27 mmol/L (22-29); Chloride 103 mmol/L (98-107); Creatine Phosphokinase 226 U/L (39-308); Globulin 2.5 g/dL (1.3-4.6); Glomerular Filtration Rate 62.9 mL/min (90-130); Glucose 80 mg/dL (65-115); Osmolality Calculated 285 mOsm/kg (285-295); Sodium 137 mmol/L (136-145); Total Bilirubin 0.3 mg/dL (0.15-1.2)
--- NOTE | 2021-11-16 06:55 | PC.NURSE ---
Bedside report completed with BENY Hua.
--- NOTE | 2021-11-16 08:20 | PC.NURSE ---
Report given to BENY Moon. Unable to complete bedside report due to this nurse required to be near other patient, as sitter. . Care transferred.
[2021-11-16] MEDS: aspirin 81 mg EC Tablet PO (08:45)
--- NOTE | 2021-11-16 09:33 | PM.DCS ---
Discharge Providers Date of Admission: 11/15/21 04:10 Date of Discharge: November 16, 2021 Attending Provider at Admission: Love Hood MD Attending Provider at Discharge: Alejandra Horton MD Diagnoses at Discharge Discharge Diagnosis (1) Drug overdose: Details from hospital stay: Unintentional, drug screen with methamphetamines and cocaine Status: Acute Qualifiers: Encounter type: initial encounter Injury intent: accidental or unintentional Qualified Code(s): T50.901A - Poisoning by unspecified drugs, medicaments and biological substances, accidental (unintentional), initial encounter (2) NSTEMI (non-ST elevated myocardial infarction): Details from hospital stay: In the setting of positive cocaine screen. No known coronary artery disease nor appreciable history of coronary artery disease in the family. Denies anginal type symptoms at any point in the past in particular the last month or so. Has not had any chest pain during the hospital stay and does not recall any prior to event leading to admission. Status: Acute (3) Pneumonia: Details from hospital stay: Aspiration, no defined organism Status: Acute Qualifiers: Aspiration pneumonia type: due to gastric secretions Laterality: bilateral Lung location: lower lobe of lung Pneumonia type: aspiration pneumonia Qualified Code(s): J69.0 - Pneumonitis due to inhalation of food and vomit Reason for Visit Reason for Visit: OD Brief History: From H&P: Yanick Bhatti is a 56 year old male without known significant PMH who is brought to the ER today with AMS. No clear history available at this time for patient due to AMS and lethargy. Per ER and EMS report, patient was found unresponsive in his home today with h/o having taking multiple illicit substances including heroin, cocaine and meth. He received Narcan after which his mentation improved, however he remains lethargic. Also noted to have been hypoxic, needing supplemental 02 at 2lpm. Hospital Course Hospital Course Patient was admitted initially to the ICU secondary to persistent lethargy after overdose. For non-ST elevation OK, he was treated with aspirin, statin, treatment dose Lovenox. Also given benzodiazepines if needed. Echocardiogram showed normal ejection fraction and no wall motion abnormalities. Inpatient cardiac stress testing was offered but patient preferred outpatient follow-up. We reviewed that he could in fact have significant coronary artery disease identified by the strain from overdose. Talked about the fact that he could have another heart attack, develop heart failure or even if cardiac disease is not identified and treated. He will be discharged on aspirin, statin, as needed sublingual nitroglycerin and beta-blockade to initiate after stress testing is completed. Exercise MIBI has been ordered. Arrangements are underway to find a primary care provider who can help him follow-up the results otherwise they will be sent to me. Patient verbally expressed understanding of the potential severity and need for follow-up. Lipid panel was ordered and is pending results. Patient was hypoxic and had bilateral lower lobe opacities. Diagnosed with aspiration pneumonia. Treated initially with Rocephin and azithromycin, transition to Zosyn inpatient and will be discharged on Augmentin. He was requiring oxygen initially though at the time of discharge was maintaining room air saturations. Some congestion and cough on the day of discharge but no acute distress. We discussed importance of avoiding drugs as well as not drinking and smoking in terms of overall heart health. Encourage patient to follow regularly with a primary care provider for annual checkups and to address concerns about possible underlying heart disease. A follow-up appointment with cardiology will be arranged. Patient was awake and alert at the time of discharge. He was oriented to person place and situation. He had some scattered wheezes that improved after a cough, otherwise clear, regular rhythm, no murmurs. He expressed understanding of the conversation that we had had and given an opportunity to ask questions. Discharge plans were reviewed with him personally by me as well as with nursing staff who will review again. Discharge Data Studies Completed and Pending Completed Studies During Hospitalization Category Date Time Status CT head wo con* [id number] Urgent Cat Scan 11/14/21 23:54 Completed CTA chest [CT angio chest PE protcl 33250] Urgent Cat Scan 11/15/21 02:47 Completed XR chest 1V portable [id number] Urgent Exams 11/14/21 23:54 Completed CV. echo complete* [id number] Routine Ultrasound 11/15/21 06:02 Completed Pending at discharge Category Date Time Status Blood Culture Stat Lab 11/15/21 06:17 Results Lipid Panel Routine Lab 11/16/21 04:40 Received Radiology Impressions Chest X-Ray 11/14/21 23:54 IMPRESSION: 1. Low lung volumes with mild left basilar atelectasis versus pneumonia. 2. Possible small left pleural effusion. Head CT 11/14/21 23:54 IMPRESSION: No evidence of acute intracranial abnormality. Chest CTA 11/15/21 02:47 IMPRESSION: 1. No evidence of pulmonary embolism. 2. Posterior bilateral lower lobe atelectasis versus pneumonia or aspiration with bibasilar consolidation and volume loss. 3. Small hiatal hernia with gastroesophageal reflux to the level of the thoracic inlet. Laboratory Results WBC 7.6 10^3/uL (4.0-10.0) 11/16/21 04:40 RBC 4.55 10^6/uL (4.1-5.3) 11/16/21 04:40 Hgb 13.2 g/dL (11.7-16.6) 11/16/21 04:40 Hct 40.6 % (42.0-52.0) L 11/16/21 04:40 MCV 89.2 fl (80-94) 11/16/21 04:40 MCH 29.0 pg (28.0-34.0) 11/16/21 04:40 MCHC 32.5 g/dL (30.0-36.0) 11/16/21 04:40 RDW 12.8 % (12.1-15.1) 11/16/21 04:40 Plt Count 231 10^3/cmm (130-400) 11/16/21 04:40 MPV 10.3 fL (7.4-10.4) 11/16/21 04:40 Neut % (Auto) 61.4 % 11/16/21 04:40 Lymph % (Auto) 23.0 % 11/16/21 04:40 [place] % (Auto) 8.6 % 11/16/21 04:40 Eos % (Auto) 6.2 % 11/16/21 04:40 Baso % (Auto) 0.4 % 11/16/21 04:40 Neut # (Auto) 4.67 10^3/uL (1.8-7.7) 11/16/21 04:40 Lymph # (Auto) 1.8 10^3/uL (0.8-4.8) 11/16/21 04:40 Hamblen # (Auto) 0.7 10^3/uL (0.2-0.9) 11/16/21 04:40 Eos # (Auto) 0.5 10^3/uL (0.0-0.8) 11/16/21 04:40 Baso # (Auto) 0.0 10^3/uL (0.0-0.1) 11/16/21 04:40 Nucleated RBC % (auto) 0 % 11/16/21 04:40 Nucleated RBCs # 0.0 /100WBC 11/16/21 04:40 Specimen Type Arterial 11/14/21 00:17 Sample Site Radial, left 11/14/21 00:17 ABG pH 7.30 (7.35-7.45) L 11/14/21 00:17 ABG pCO2 54.1 mmHg (35-45) H 11/14/21 00:17 ABG pO2 103.0 mmHg (80.0-100.0) H 11/14/21 00:17 ABG HCO3 26.7 mmol/L (22-26) H 11/14/21 00:17 ABG Base Excess -0.8 mmol/L (-2.0-2.0) 11/14/21 00:17 Ezra Test Pos 11/14/21 00:17 Hematocrit 46.8 % (42-52) 11/14/21 00:17 O2 Delivery Device Nc 11/14/21 00:17 O2 Liters/Min 3.0 % 11/14/21 00:17 Instrument Specialist ID Walci 11/14/21 00:17 Sodium 137 mmol/L (136-145) 11/16/21 04:40 Potassium 4.0 mmol/L (3.5-5.1) 11/16/21 04:40 Chloride 103 mmol/L (98-107) 11/16/21 04:40 Carbon Dioxide 27 mmol/L (22-29) 11/16/21 04:40 Anion Gap 11.0 (5-19) 11/16/21 04:40 BUN 19 mg/dL (6-20) 11/16/21 04:40 Creatinine 1.2 mg/dL (0.7-1.2) 11/16/21 04:40 GFR Calculation 62.9 mL/min (90-130) L 11/16/21 04:40 Glucose 80 mg/dL (65-115) 11/16/21 04:40 Calculated Osmolality 285 mOsm/kg (285-295) 11/16/21 04:40 Lactic Acid 0.7 mmol/L (0.5-2.2) 11/15/21 06:17 Calcium 8.5 mg/dL (8.5-10.5) 11/16/21 04:40 Magnesium 2.0 mg/dL (1.7-2.3) 11/16/21 04:40 Total Bilirubin 0.3 mg/dL (0.15-1.2) 11/16/21 04:40 AST 18 U/L (0-40) 11/16/21 04:40 ALT 14 U/L (0-41) 11/16/21 04:40 Alkaline Phosphatase 73 IU/L (40-130) 11/16/21 04:40 Creatine Kinase 226 U/L (39-308) 11/16/21 04:40 Troponin T Baseline 39 ng/L (0-15) H 11/15/21 00:05 Troponin T 120 Minute 61.88 ng/L (0-15) H 11/15/21 02:08 Delta Troponin T 22.88 ABS# (0-10) H* 11/15/21 02:08 Troponin T Hi Sens 6Hr 40.58 ng/L (0-15) H 11/15/21 06:17 Troponin T Hi Sens 6Hr Delta 1.58 ng/L (0-12) 11/15/21 06:17 Total Protein 6.0 g/dL (6.6-8.7) L 11/16/21 04:40 Albumin 3.5 g/dL (3.5-5.2) 11/16/21 04:40 Globulin 2.5 g/dL (1.3-4.6) 11/16/21 04:40 Salicylates < 0.3 mg/dL (3-10) L 11/15/21 00:05 Urine Opiates Screen Negative ng/mL (Negative) 11/15/21 00:35 Acetaminophen < 5.0 ug/mL (10-30) L 11/15/21 00:05 Ur Barbiturates Screen Negative ng/mL (Negative) 11/15/21 00:35 Ur Phencyclidine Scrn Negative ng/mL (Negative) 11/15/21 00:35 Ur Amphetamines Screen Positive ng/mL (Negative) H 11/15/21 00:35 U Benzodiazepines Scrn Negative ng/mL (Negative) 11/15/21 00:35 Urine Cocaine Screen Positive ng/mL (Negative) H 11/15/21 00:35 U Marijuana (THC) Screen Negative ng/mL (Negative) 11/15/21 00:35 Ethyl Alcohol < 10 mg/dL (0-10) 11/15/21 00:05 Vitals Last Vital Signs Temp 97.6 F 11/16/21 08:56 Pulse 68 11/16/21 08:56 Resp 16 11/16/21 08:56 BP 147/80 11/16/21 08:56 Pulse Ox 94 11/16/21 08:56 Discharge Plan Discharge Patient Disposition: Home Condition: Stable Prescriptions: New atorvastatin 40 mg Tablet 40 mg PO BEDTIME Qty: 30 0RF aspirin 81 mg Tablet,Delayed Release (Dr/Ec) 81 mg PO DAILY Qty: 30 0RF Augmentin 500-125 mg tablet 1 tab PO Q8H Qty: 21 0RF nitroglycerin 0.4 mg tablet, sublingual 0.4 mg sublingual Q5M PRN (Reason: chest pain) Qty: 25 0RF Rx Instructions: do not exceed 3 doses per episode carvedilol 3.125 mg tablet 3.125 mg PO Q12H Qty: 60 0RF Rx Instructions: DO NOT START UNTIL AFTER STRESS TEST COMPLETE - must administer with a meal/food Discharge Orders: Discharge Order (Routine); Ordered 11/16/21 Ordered By: Alejandra Horton Other Ambulatory Orders: Sestamibi Stress Test Request (Routine) Timeframe: 1 Week Facility: [facility] - Location: Cardiac Diagnostic Laboratory Ordered By: Alejandra Horton Referrals: Rosemarie Villarreal FNP [Nurse Practitioner] - (This appointment has been scheduled :for follow up after hospital inpatient and will have stress test ,to follow up with after this test performed. Rosemarie Villarreal APN NURSE AT [facility] APPOINTMENT DATE -November time of 11:00 am ) Abraham Singh MD [Physician] - 2 weeks (Schedule after stress test is completed. Pt not seen by Dr Singh in hospital, but case discussed with him by Dr. Horton. No PCP. NSTEMI, + drug screen, echo nl EF/no wall motion abnormalities. No known CAD but unclear history of abnormal heart rhythm. No known family history of CAD. unavailable ,will follow up with Primary Care Physican for 1 week after care hospital appointment ,will need cardiology after stress test done ,and new patient cardiology appointment. cardiology appointment has been scheduled as new patient follow up : January at time of 2:15 pm ) Discharge Diet: Cardiac Discharge Activity: Increase activity as tolerated Patient Instructions: Cocaine Abuse, Aspirin (By mouth), Amoxicillin/Clavulanate Potassium (By mouth), Nitroglycerin, Rapid Release (By mouth), Atorvastatin (By mouth), Methamphetamine Abuse, Heart Attack (DC), Heart Healthy Diet (DC), Aspiration Pneumonia (DC), Opioid Safety, Post Heart Attack Stoplight Activity Restrictions/Additional Instructions: You were brought into the emergency room by EMS with decreased responsiveness. You had some response to Narcan, medication use to reverse opioids or narcotics. Work-up in the emergency room revealed a urine drug screen positive for methamphetamines as well as cocaine. EKG had abnormalities that were nonspecific but suggestive of potential heart problems. Heart enzymes, which we measure to evaluate if the heart muscles have been strained were checked and found to be elevated consistent with you having a heart attack. That could have been brought on by cocaine in particular as well as overall effect on your body from your being unresponsive. Your heart enzymes improved and you denied having any episodes of chest pain around the time of admission, during the hospital stay or in the preceding month or so. As we discussed, an outpatient stress test has been ordered for you. Please keep the appointment as arranged. You could have underlying coronary artery disease which if not treated could lead to recurrent heart attack, heart failure and even possibly . You have been prescribed aspirin and cholesterol medicine for now. Cholesterol level is pending at the time of discharge but we give cholesterol medicine when people of had a heart attack. In addition to these medicines nitroglycerin has been ordered for you to take if you have acute chest pain. Be careful with this medication as it can drop blood pressure dramatically, especially if you have taken any medicines for erectile dysfunction/impotence (do not mix nitroglycerin with medication such as Viagra). Lastly I have ordered medication called carvedilol 3.125 mg twice a day. This is a medication that we give to people who have had a heart attack which helps protect the heart and also can decrease blood pressure. DO NOT START carvedilol until AFTER stress test is completed. An appointment with a provider will be arranged on an outpatient basis to ensure appropriate follow-up of stress testing results. I have also requested cardiology follow-up. You had evidence of pneumonia clinically felt to be aspiration pneumonia in both lungs. You initially required oxygen. For this you will be on antibiotics for the next 7 days. Please complete antibiotic course as directed. Recommend you establish primary care provider whom you can follow-up with for general medical issues and wellness. Avoid drugs. Do not drink alcohol nor smoke. Discharge Attestations Time Spent in Discharge Care*: greater than 30 min Specific Discharge Activities: educating patient, discussing with pcp/other providers, discussing with onsite case manager/social workers/dc planners, documenting/other paperwork and evaluating patient/reviewing data Quality Metrics Clinical Quality Measures [ Acute Myocardial Infaction { Clinical Trial Participant: No; Contraindication to aspirin: None; Aspirin prescribed; Contraindication to statin: None; Statin prescribed;}] Coding Level of Care Code Acute [facility] FW DC note Diagnoses Drug overdose T50.901A Encounter type: initial encounter Injury intent: accidental or unintentional NSTEMI (non-ST elevated myocardial infarction) I21.4 Pneumonia J69.0 Aspiration pneumonia type: due to gastric secretions Laterality: bilateral Lung location: lower lobe of lung Pneumonia type: aspiration pneumonia
[2021-11-16 09:42] LABS: Chol HDL Ratio 3.43 mg/dL (1.0-5.00); Cholesterol 137 mg/dL (0-200); HDL Cholesterol 40 mg/dL (60-100); LDL Cholesterol Calculated 81 mg/dL (50-129); LDL HDL Ratio 2.03 RATIO (0.00-3.22); Triglycerides 80 mg/dL (0-150)
--- NOTE | 2021-11-16 14:09 | PC.NURSE ---
Patient discharged home. Patient's girl friend, Shraddha picked patient up. IV removed. Medication, activity, and followup appointment education provided. Patient signature form signed.
== END 2021-11-16 14:11 | disposition home or self-care (01) | DRG 917 ==
LOC: ER 11-15 04:14 → ICU 11-15 04:25
PROVIDERS: Admitting Provider Student in an Organized Health Care Education/Training Program; Emergency Provider Emergency Medicine; Visit Provider Hospitalist
DX: T40.5X1A Poisoning by cocaine, accidental (unintentional), initial encounter (principal); I21.4 Non-ST elevation (NSTEMI) myocardial infarction; J69.0 Pneumonitis due to inhalation of food and vomit; F14.10 Cocaine abuse, uncomplicated; F15.10 Other stimulant abuse, uncomplicated; F11.10 Opioid abuse, uncomplicated; Z87.891 Personal history of nicotine dependence; R41.82 Altered mental status, unspecified; R09.02 Hypoxemia; I73.89 Other specified peripheral vascular diseases; K21.9 Gastro-esophageal reflux disease without esophagitis; K44.9 Diaphragmatic hernia without obstruction or gangrene
CPT/HCPCS: 36415; 36600; 70450; 71045; 71275; 80053; 80061; 80306; 80307; 82550; 82803; 83605; 83735; 84484; 85025; 87040; 93005; 93306; 96365; 96372; 96375; 99285; G0378; J0456; J0696; J1650; J2310; J2543; J3490; J7030; J7050; Q9967